=== PATIENT | female | born 1995 | race Caucasian/White ===

== ENCOUNTER 2018-05-05 20:07 | Emergency (ER) | END 2018-05-05 22:22 | disposition home or self-care (01) ==

== ENCOUNTER 2018-10-05 05:18 | Inpatient (IN) | payer MEDICAID ==
[~2018-10-05] VITALS: Ht 149.9 cm; Wt 74.0 kg
[2018-10-05] MEDS ORDERED: PREN-19 PO (05:42)
[2018-10-05] MEDS ORDERED: FERR134T PO (05:42)
[2018-10-05] MEDS ORDERED: CALC600T24 PO (05:42)
[2018-10-05 05:43] VITALS: BP 123/71; PULSE 71; RESP 18
[2018-10-05] MEDS ORDERED: LACTATED RINGER'S 1,000 ML IV PRN (06:11)
[2018-10-05] MEDS ORDERED: LIDOCAINE 1% (MPF) 30 ML INJ INJ PRN (06:30)
[2018-10-05] MEDS ORDERED: CARBOPROST 250 MCG INJ IM PRN ×2 (06:30→13:30)
[2018-10-05] MEDS ORDERED: IBUPROFEN 600 MG TAB PO PRN (06:30)
[2018-10-05] MEDS ORDERED: BUTORPHANOL 2 MG INJ IV PRN (06:30)
[2018-10-05] MEDS ORDERED: OXYTOCIN 30 UNITS/LR 500 ML IV SCH ×2 (06:30)
[2018-10-05] MEDS ORDERED: AMPICILLIN 2 GM/NS (PMX) 100 ML IV ONE (06:30)
[2018-10-05] MEDS ORDERED: MISOPROSTOL 200 MCG TAB PR PRN ×2 (06:30→13:30)
[2018-10-05] MEDS ORDERED: METHYLERGONOVINE 0.2 MG INJ IM PRN (06:30)
[2018-10-05] MEDS ORDERED: OXYTOCIN 30 UNITS/LR 500 ML IV PRN ×2 (06:30→13:30)
[2018-10-05] MEDS: LACTATED RINGER'S 1,000 ML IV SCH ×2 (06:46→11:23)
--- NOTE | 2018-10-05 08:19 | HP ---
Date/Time of Note Date/Time of Note DATE: 10/05/18 TIME: 08:18 OB - History Hx of Present Free Text/Dictation 23 YO who reported in labor Care: Good Care Ultrasounds: No ultrasounds, Normal mid trimester US Obstetrical Complications: None Medical Complications: None Past Family/Social History * Past Medical, Surgical, Family and Obstetric Histories reviewed from chart. OB Admission Exam Vital Signs Vital Signs Vital Signs Date Temp Pulse Resp B/P (MAP) Pulse Ox O2 O2 Flow FiO2 Time Delivery Rate 10/05/18 98.3 71 18 123/71 Room Air 05:43 (88) Physical Exam HEENT: WNL Heart: Rhythm Normal Lungs: Clear, Equal Abdomen: WNL Extremities: Normal Reflexes: Normal Cervical Dilatation: 5cm Effacement: 75% Station: -2 Membranes: Intact Last 72 hours Lab Results CBC & BMP 10/05/18 06:30 OB Assessment/Plan Reason for admission: active labor Plan: Expectant Management TYSON WIGGINS MD Oct 05, 2018 08:19
[2018-10-05] MEDS ORDERED: AMPICILLIN 1 GM/NS (PMX) 50 ML IV SCH (10:30)
[2018-10-05] MEDS ORDERED: MINERAL OIL LIGHT 10 ML VIAL ONE (11:22)
--- NOTE | 2018-10-05 13:29 | LDN ---
Date/Time of Note Date/Time of Note DATE: 10/05/18 TIME: 13:27 Delivery Summary 23 YO with term IUP s/p of viable male infant over intact perineum. placenta delivered intact and spontaneously EBL 300 ml Placenta Delivered: Spontaneously Meconium: none Episiotomy: No Perineal laceration: 0 Anesthesia type: None Estimated blood loss: 300 Sponge & Needle done & correct: Yes All needle counts correct: Yes Any foreign bodies felt in the: No Delivery Information Sex Infant Sex: male Apgars 1 Minute: 8 5 Minute: 9 Suctioning Nose & mouth suctioned at harinder: No Delee suction performed: No Umbilical Cord Umbilical cord with: 3 Vessels Cord presentations: nuchal cord Nuchal cord present X: 1 Cord Blood was obtained: Yes Mother & Baby Disposition Disposition Mom & Baby to Maternity; Good: Yes TYSON WIGGINS MD Oct 05, 2018 13:29
[2018-10-05] MEDS ORDERED: HYDROCODONE/APAP (5/325) TAB PO PRN ×2 (13:30)
[2018-10-05] MEDS ORDERED: WITCH HAZEL/GLYCERIN PAD PR PRN (13:30)
[2018-10-05] MEDS ORDERED: DIPHENHYDRAMINE 50 MG INJ IV PRN (13:30)
[2018-10-05] MEDS ORDERED: SENNA/DOCUSATE NA (8.6MG/50MG) TAB PO PRN (13:30)
[2018-10-05] MEDS ORDERED: MAGNESIUM HYDROXIDE 30ML CUP PO PRN (13:30)
[2018-10-05] MEDS ORDERED: DIPHENHYDRAMINE 25 MG CAP PO PRN (13:30)
[2018-10-05] MEDS ORDERED: BENZOCAINE 20% 56 ML SPRAY TOP PRN (13:30)
[2018-10-05] MEDS ORDERED: LANOLIN HPA 1 PKT TOP PRN (13:30)
[2018-10-05] MEDS ORDERED: ONDANSETRON 4 MG TAB PO PRN (13:30)
[2018-10-05] MEDS ORDERED: ONDANSETRON 4 MG INJ IV PRN (13:30)
[2018-10-05] MEDS ORDERED: DIBUCAINE 1% 30 GM OINT TOP PRN (13:30)
[2018-10-05] MEDS ORDERED: NA PHOSPHATE/BIPHOS 133 ML ENEMA PR PRN (13:30)
[2018-10-05 15:00] VITALS: BP 112/69; PULSE 75; RESP 18
[2018-10-05] MEDS: LACTATED RINGER'S 1,000 ML IV* SCH ×2 (18:00→21:26)
[2018-10-05] MEDS: IBUPROFEN 600 MG TAB PO SCH (18:28)
[2018-10-05 20:00] VITALS: BP 110/68; PULSE 84; RESP 19
[2018-10-05] MEDS: SENNA/DOCUSATE NA (8.6MG/50MG) TAB PO SCH (20:27)
[2018-10-06] MEDS: IBUPROFEN 600 MG TAB PO SCH ×4 (00:20→22:29)
[2018-10-06] MEDS: LACTATED RINGER'S 1,000 ML IV* SCH ×3 (02:35→22:30)
[2018-10-06 04:00] VITALS: BP 97/64; PULSE 76; RESP 16
[2018-10-06 08:00] VITALS: BP 100/56; PULSE 75; RESP 18
[2018-10-06] MEDS: SENNA/DOCUSATE NA (8.6MG/50MG) TAB PO SCH ×2 (13:07→22:02)
[2018-10-06 16:00] VITALS: BP 119/74; PULSE 74; RESP 18
--- NOTE | 2018-10-06 16:02 | PN ---
Date/Time of Note Date/Time of Note DATE: 10/06/18 TIME: 16:00 OB Subjective Subjective Subjective Reports vaginal bleeding decreased. Breast-feeding. Urinated. Denies any d izziness or lightheadedness. Reports pain in her groin area especially in the right side. Denies any trouble with ambulation. OB Objective Objective Objective General appearance: Alert and oriented x4 does not appear to be in any acute distress Abdomen: Soft, fundus firm and palpable below the umbilicus and nontender Extremities: No calf tenderness, no click no edema Neuro exam within normal limits. Breast: No evidence of mastitis or fissure VS - Last 72 Hours, by Label Date Temp Pulse Resp B/P (MAP) Pulse Ox O2 O2 Flow FiO2 Time Delivery Rate 10/06/18 98.6 75 18 100/56 Room Air 08:00 (71) 10/06/18 98.9 76 16 97/64 (75) Room Air 04:00 10/05/18 99.2 84 19 110/68 Room Air 20:00 (82) 10/05/18 98.6 75 18 112/69 Room Air 15:00 (83) 10/05/18 98.3 71 18 123/71 Room Air 05:43 (88) Laboratory Tests Test 10/05/18 06:30 10/06/18 06:12 10/06/18 07:12 White Blood Count 9.5 10^3/ul 12.6 10^3/ul Red Blood Count 4.31 10^6/ul 3.81 10^6/ul Hemoglobin 10.7 g/dl 9.6 g/dl Hematocrit 33.3 % 29.7 % Mean Corpuscular Volume 77.3 fl 78.0 fl Mean Corpuscular 24.8 pg 25.2 pg Hemoglobin Mean Corpuscular 32.1 g/dl 32.3 g/dl Hemoglobin Concent Red Cell Distribution 15.4 % 15.8 % Width Platelet Count 228 10^3/UL 207 10^3/UL Mean Platelet Volume 11.0 fl 10.9 fl Immature Granulocytes % 1.500 % 1.500 % Neutrophils % 63.7 % 61.6 % Lymphocytes % 26.6 % 28.7 % Monocytes % 6.9 % 6.4 % Eosinophils % 0.9 % 1.2 % Basophils % 0.4 % 0.6 % Nucleated Red Blood Cells 0.0 /100WBC 0.0 /100WBC % Immature Granulocytes # 0.140 10^3/ul 0.190 10^3/ul Neutrophils # 6.1 10^3/ul 7.7 10^3/ul Lymphocytes # 2.5 10^3/ul 3.6 10^3/ul Monocytes # 0.7 10^3/ul 0.8 10^3/ul Eosinophils # 0.1 10^3/ul 0.2 10^3/ul Basophils # 0.0 10^3/ul 0.1 10^3/ul Nucleated Red Blood Cells 0.0 10^3/ul 0.0 10^3/ul # Prothrombin Time 12.3 Sec Prothrombin Time Ratio 1.0 INR International 0.90 Normalized Ratio Activated 28.6 Sec Partial Thromboplast Time Rapid Plasma Reagin NONREACTIVE Hepatitis B Surface NEGATIVE Antigen Lab Scanned Report REFERENCE LAB [id number] OB Assessment/Plan Other Assessment: Status post day #1 Mild anemia, asymptomatic Right groin pain likely musculoskeletal, no evidence of neurological problem. Continue routine care Iron after discharge from the hospital with vitamin Anticipate DC home tomorrow BASIM INFANTE MD Oct 06, 2018 16:02
[2018-10-06 20:00] VITALS: BP 113/77; PULSE 76; RESP 18
[2018-10-07] MEDS: IBUPROFEN 600 MG TAB PO SCH ×3 (00:18→12:22)
[2018-10-07 04:00] VITALS: BP 103/66; PULSE 81; RESP 20
[2018-10-07 07:45] VITALS: BP 104/64; RESP 18
[2018-10-07] MEDS ORDERED: DIPHTH/TET/ACEL PERTUSS (ADULT) 0.5 ML VIAL IM* ONE (09:00)
[2018-10-07] MEDS ORDERED: MEASLES,MUMPS,RUBELLA VACCINE INJ SC* ONE (09:00)
[2018-10-07] MEDS ORDERED: VARICELLA VACCINE LIVE/PF 1,350 UNIT/0.5 ML ML SC* ONE (09:00)
[2018-10-07] MEDS: SENNA/DOCUSATE NA (8.6MG/50MG) TAB PO SCH (10:13)
--- NOTE | 2018-10-07 13:05 | DS ---
Date/Time of Note Date/Time of Note DATE: 10/07/18 TIME: 13:04 Obstetrical Discharge Record Final Diagnosis Final Diagnosis: Term delivered Vaginal Delivery Obstetrical Delivery: Spontaneous Complications Augmentation: Yes Condition on Discharge Physical Assessment Voiding: Yes Bowel Movement: Yes Breast: Soft, non-tender, Filling Fundus: Firm Abdomen and Incision: soft, not tender, fundus is firm Calf Tenderness: No Patient Condition: Good TYSON WIGGINS MD Oct 07, 2018 13:05
== END 2018-10-07 16:05 | disposition home or self-care (01) | DRG 807 ==
LOC: OBT 05:18 → L-D 05:18 → OBT 06:05 → L-D 06:21 → PP1 14:45
PROVIDERS: ADMIT Specialist; ATTEND Specialist
PROC: 10E0XZZ Delivery of Products of Conception, External Approach (ICD-10-PCS; principal; 2018-10-05)
DX: O69.81X0 Labor and delivery complicated by cord around neck, without compression, not applicable or unspecified (principal); O90.81 Anemia of the puerperium; D64.9 Anemia, unspecified; R10.31 Right lower quadrant pain; Z37.0 Single live birth; Z3A.00 Weeks of gestation of pregnancy not specified
CPT/HCPCS: 85025; 85610; 85730; 86592; 86850; 86900; 86901; 87340; 90716; G0463; J0290; J2590; J7120